=== PATIENT | female | born 1970 | race Two or more races ===

== ENCOUNTER 2017-09-15 11:32 | Inpatient (IN) | payer MEDICAID, OTHER ==
[~2017-09-15] VITALS: Ht 160 cm; Wt 62.0 kg
[2017-09-15] MEDS ORDERED: LEFL10TA PO (11:45)
[2017-09-15] MEDS ORDERED: SODIUM CHLORIDE FLUSH 10ML SYR IVF ONE (12:00)
[2017-09-15] MEDS ORDERED: MORPHINE SULFATE 4 MG/ML, 1ML ONE (13:20)
[2017-09-15] MEDS ORDERED: MORPHINE SULFATE 4 MG/ML, 1ML IVPush PRN (13:30)
[2017-09-15] MEDS ORDERED: HYDROmorphone 2 MG/ML, 1ML ONE (13:57)
[2017-09-15] MEDS ORDERED: HYDROmorphone 1 MG/ML, 1ML IVPush PRN (14:00)
[2017-09-15] MEDS ORDERED: SENNA/DOCUSATE TABLET PO PRN (15:30)
[2017-09-15] MEDS ORDERED: MAGNESIUM HYDROXIDE 8%, 30ML UDC PO PRN (15:30)
[2017-09-15] MEDS ORDERED: ONDANSETRON 2MG/ML, 2ML IV PRN (15:30)
[2017-09-15] MEDS ORDERED: ALUMINUM/MAG/SIMETHICONE 30 ML UDC PO PRN (15:30)
[2017-09-15] MEDS ORDERED: ACETAMINOPHEN 325 MG TABLET PO PRN (15:30)
[2017-09-15 18:45] VITALS: BP 134/86
[2017-09-15 20:43] VITALS: BP 134/86
[2017-09-15 21:00] VITALS: BP 136/82
[2017-09-15] MEDS: DOCUSATE 100 MG CAPSULE PO SCH (21:00)
[2017-09-15] MEDS: POTASSIUM CHLORIDE 20 MEQ in D5%-0.45% NACL 1,000 ML IV SCH (22:00)
[2017-09-16 03:32] VITALS: BP 111/71
[2017-09-16 06:28] VITALS: BP 93/59
[2017-09-16] MEDS: MULTIVITAMINS/MINERALS TABLET PO SCH (10:20)
[2017-09-16] MEDS: POTASSIUM CHLORIDE 20 MEQ in D5%-0.45% NACL 1,000 ML IV SCH ×2 (10:20→20:42)
[2017-09-16] MEDS: DOCUSATE 100 MG CAPSULE PO SCH ×2 (10:20→20:42)
[2017-09-16] MEDS: ENOXAPARIN 40 MG/0.4 ML SQ SCH (10:22)
[2017-09-16 12:01] VITALS: BP 98/67
[2017-09-16 21:50] VITALS: BP 99/66
[2017-09-17 02:42] VITALS: BP 101/67
[2017-09-17] MEDS: POTASSIUM CHLORIDE 20 MEQ in D5%-0.45% NACL 1,000 ML IV SCH ×2 (06:06→16:12)
[2017-09-17] MEDS ORDERED: FENTANYL PF 250 MCG/5ML ONE (06:24)
[2017-09-17] MEDS ORDERED: MIDAZOLAM 1 MG/ML, 2ML ONE (06:24)
[2017-09-17] MEDS ORDERED: BUPIVACAINE/PF 0.5% ONE (06:26)
[2017-09-17] MEDS ORDERED: NEOSPORIN OINT, 15GM ONE (06:26)
[2017-09-17] MEDS ORDERED: EPINEPHRINE 1 MG/ML, 1ML ONE (06:26)
[2017-09-17] MEDS ORDERED: CEFAZOLIN 1,000 MG ONE (07:28)
[2017-09-17] MEDS ORDERED: DEXAMETHASONE 4 MG/ML, 1ML ONE ×2 (07:28→07:57)
[2017-09-17] MEDS ORDERED: ONDANSETRON 2MG/ML, 2ML ONE ×2 (07:28→07:57)
[2017-09-17] MEDS ORDERED: PROPOFOL 10 MG/ML, 20ML ONE ×4 (07:28→07:57)
[2017-09-17] MEDS ORDERED: PROMETHAZINE 12.5 MG SUPP PR PRN (07:30)
[2017-09-17] MEDS ORDERED: ACETAMINOPHEN 325 MG TABLET PO PRN (07:30)
[2017-09-17] MEDS ORDERED: HYDROcodone/APAP 7.5-325MG/15ML UDC PO PRN (07:30)
[2017-09-17] MEDS ORDERED: FENTANYL PF 100 MCG/2ML IV PRN (07:30)
[2017-09-17] MEDS ORDERED: PROMETHAZINE 25 MG/ML, 1ML IV PRN (07:30)
[2017-09-17] MEDS ORDERED: OXYcodone 5 MG/5 ML ORAL.SOL UDC PO PRN (07:30)
[2017-09-17] MEDS ORDERED: ONDANSETRON 2MG/ML, 2ML IVPush PRN (07:30)
[2017-09-17] MEDS ORDERED: ACETAMINOPHEN 650 MG/20.3 ML UDC ONE (08:48)
[2017-09-17] MEDS ORDERED: OXYcodone 5 MG/5 ML ORAL.SOL UDC ONE (08:48)
[2017-09-17] MEDS ORDERED: HYDROmorphone 2 MG/ML, 1ML ONE (08:55)
[2017-09-17] MEDS: HYDROmorphone 1 MG/ML, 1ML IV PRN ×2 (08:57→09:05)
[2017-09-17] MEDS: MULTIVITAMINS/MINERALS TABLET PO SCH (09:56)
[2017-09-17] MEDS: DOCUSATE 100 MG CAPSULE PO SCH ×2 (09:56→19:50)
[2017-09-17] MEDS: OXYcodone 5 MG/5 ML ORAL.SOL UDC PO PRN (09:56)
[2017-09-17 14:18] VITALS: BP 99/66
[2017-09-17] MEDS: HYDROcodone/APAP 5/325 TABLET PO PRN ×2 (14:29→20:33)
[2017-09-17 19:37] VITALS: BP 105/67
[2017-09-18] VITALS: BP 101/60
[2017-09-18 03:41] VITALS: BP 105/66
[2017-09-18] MEDS: POTASSIUM CHLORIDE 20 MEQ in D5%-0.45% NACL 1,000 ML IV SCH ×2 (05:00→15:04)
[2017-09-18] MEDS: ENOXAPARIN 40 MG/0.4 ML SQ SCH (06:15)
[2017-09-18] MEDS: HYDROcodone/APAP 5/325 TABLET PO PRN (06:21)
[2017-09-18 07:24] VITALS: BP 101/62
[2017-09-18] MEDS: DOCUSATE 100 MG CAPSULE PO SCH ×2 (08:00→19:56)
[2017-09-18] MEDS: MULTIVITAMINS/MINERALS TABLET PO SCH (08:00)
[2017-09-18] MEDS: OXYcodone 5 MG/5 ML ORAL.SOL UDC PO PRN ×4 (08:01→19:57)
[2017-09-18 12:34] VITALS: BP 101/68
[2017-09-18] MEDS ORDERED: HYDROmorphone 2 MG/ML, 1ML ONE ×2 (14:30→23:24)
[2017-09-18] MEDS: HYDROmorphone 1 MG/ML, 1ML IV PRN ×2 (14:33→23:26)
[2017-09-18 20:22] VITALS: BP 99/64
[2017-09-19] MEDS: OXYcodone 5 MG/5 ML ORAL.SOL UDC PO PRN ×3 (00:35→09:46)
[2017-09-19 01:05] VITALS: BP 97/63
[2017-09-19] MEDS: POTASSIUM CHLORIDE 20 MEQ in D5%-0.45% NACL 1,000 ML IV SCH ×2 (01:12→11:18)
[2017-09-19] MEDS: ENOXAPARIN 40 MG/0.4 ML SQ SCH (06:11)
[2017-09-19 07:39] VITALS: BP 102/67
[2017-09-19] MEDS ORDERED: ASPI-496 PO (08:59)
[2017-09-19] MEDS ORDERED: HYDR-3240 PO (08:59)
[2017-09-19] MEDS ORDERED: DOCU-131 PO (09:00)
[2017-09-19] MEDS: DOCUSATE 100 MG CAPSULE PO SCH (09:49)
[2017-09-19] MEDS: MULTIVITAMINS/MINERALS TABLET PO SCH (09:49)
== END 2017-09-19 12:45 | disposition home or self-care (01) | DRG 516 ==
LOC: ED 15:20 → EDIP 15:21 → ED 15:53 → 4NOR 18:48
PROVIDERS: ADMIT Orthopaedic Surgery; ATTEND Orthopaedic Surgery
PROC: 0QSD04Z Reposition Right Patella with Internal Fixation Device, Open Approach (ICD-10-PCS; principal; 2017-09-17 07:00)
DX: S82.031A Displaced transverse fracture of right patella, initial encounter for closed fracture (principal); M25.00 Hemarthrosis, unspecified joint; W00.0XXA Fall on same level due to ice and snow, initial encounter; M06.9 Rheumatoid arthritis, unspecified; M19.90 Unspecified osteoarthritis, unspecified site; Y93.01 Activity, walking, marching and hiking; S80.01XA Contusion of right knee, initial encounter; Y92.89 Other specified places as the place of occurrence of the external cause; Y99.8 Other external cause status
CPT/HCPCS: 29505; 76000; 96374; 96375; C1713; J0171; J0690; J1100; J1170; J1650; J2250; J2405; J2704; J3010; J3480; J3490